=== PATIENT | male | born 1970 | race Caucasian/White ===

== ENCOUNTER → 2021-11-23 08:12 | Outpatient (REF) | payer MEDICAID, OTHER, SELFPAY ==
--- NOTE | 2021-11-23 08:21 | CA_ITS ---
Transthoracic Echocardiogram Patient (Last, First, Middle): Balta Kate, Gender: Male Date of : 1970 Age: 51 Procedure Date: 11/23/2021 Procedure Type: Transthoracic Echocardiogram Location: OP Height: 185.42 cm Weight: 120.2 kg BSA: 2.43 m2 Heart Rate: bpm BP: 138 / 92 mmHg Smoking Pipe Maker: SANTO Referring MD: Louis Manzano MD Symptoms: I10 HTN Study Quality: Fair Conclusions: - Normal left ventricular size and systolic function. There is mildly increased left ventricular wall thickness. The visually estimated ejection fraction is between 60-65%. Diastolic function is normal for age. - No significant valvular or pericardial pathology. Findings Left Ventricle Normal left ventricular size and systolic function. There is mildly increased left ventricular wall thickness. The visually estimated ejection fraction is between 60-65%. Diastolic function is normal for age. Right Ventricle Normal right ventricular cavity size and systolic function. Atria The left atrium is normal in size. Aortic Valve Normal aortic valve structure and function. There is no evidence of thickening of the aortic valve. There is no aortic valve stenosis. There is no aortic valve regurgitation. Mitral Valve Normal mitral valve structure and function. There is trace mitral valve regurgitation. There is no mitral valve stenosis. Pulmonic Valve The pulmonic valve was not well visualized. Tricuspid Valve Normal tricuspid valve structure and function. There is no tricuspid valve regurgitation. Tricuspid regurgitation envelope is inadequate for calculation of right ventricular systolic pressure. Normal right atrial pressure. Great Vessels All visible segments of the aorta are normal in size. The visualized portions of the pulmonary artery and branches are normal. Venous The inferior vena cava is normal in size and collapses greater than 50% with inspiration. Pericardium/Pleural There is no evidence of pericardial effusion. Prior Study Comparison No prior study available for comparison. Measurements 2D Linear Measurements IVSd: 1.08 0.6-0.9/0.6-1.0 cm LVIDd: 4.43 3.9-5.3/4.2-5.9 cm LVIDd Index: 1.82 2.4-3.2/2.2-3.1 cm/m2 LVIDs: 2.91 2.0-3.6 cm LVPWd: 1.09 0.7-1.1 cm LA Diam: 3.70 2.7-3.8/3.0-4.0 cm LAIDs Index: 1.52 1.5-2.3 cm/m2 LV Mass: 208.58 67-162/88-224 g LV Mass Index: 85.84 43-95/49-115 g/m2 LVOT Diam: 2.20 3.0+(-)1.3 cm 2D Systolic Function EF 4C: 67.60 >55% EF 2C: 63.20 >55% EF BiP: 65.20 >55% Mitral Valve MV Pk E: 0.82 MV PK A: 0.97 MV Decel Time: 178.00 E/A: 0.80 E'Lateral: 11.00 E'Medial: 6.96 E/E' Med: 11.80 E/E' Lat: 7.50 PHT: 52.00 MVA PHT: 4.23 Decel Richardson: 4.60 Aortic Valve AoV Pk Shahid: 1.36 AoV Mn Shahid: 0.97 AoV VTI: 0.34 AoV Pk Grad: 7.00 Aov Mn Grad: 4.00 MERLIEN Cont.VTI: 3.05 LVOT LVOT Pk Shahid: 1.04 LVOT Mn Shahid: 0.71 LVOT VTI: 0.27 LVOT Pk Grad: 4.00 LVOT Mn Grad: 2.00 LVOT Diam: 2.20 LVOT Area: 3.80 Diastolic Function MV Pk E: 0.82 MV Pk A: 0.97 E/A: 0.80 E'Medial: 6.96 E/E' Med: 11.80 E' Laterial: 11.00 E/E' Lat: 7.50 Right Ventricle TAPSE (mm): 23.00 TVS' Shahid: 11.60 Tricuspid Valve TR Pk Shahid: 0.67 TR Pk Grad: 2.00 RA Press: 3.00 Great Vessels Aorta Sinus of Valsalva: 3.36 2.0-3.[address] Ridge: 2.73 1.7-3.4 cm Ao Asc: 3.30 2.1-3.4 cm Ao Arch: 3.20 Updated in Other Vendor System with Status of Final Milan Arroyo MD electronically signed on 11/25/2021 12:16:06 PM with status of Final
[2021-11-23 09:29] LABS: Anion Gap 10 (12-20); Blood Urea Nitrogen 21 mg/dL (9-16); Carbon Dioxide 29 mmol/L (22-29); Chloride 103 mmol/L (96-108); Cholesterol 223 mg/dL; Estimated Glomerular Filt Rate > 60; Glucose Random 109 mg/dL (60-115); HDL Cholesterol 50 mg/dL; LDL Cholesterol Calculated 158 mg/dl; Potassium 4.2 mmol/L (3.3-5.1); Sodium 138 mmol/L (135-145); Triglycerides 75 mg/dL
== END ==
LOC: HO.CARD 08:12
PROVIDERS: PCP Internal Medicine; Visit Provider Internal Medicine
DX: I10 Essential (primary) hypertension (principal)
CPT/HCPCS: 36415; 80048; 80061; 93306

== ENCOUNTER 2024-03-17 08:54 | Outpatient (REF) | payer MEDICAID, OTHER, SELFPAY ==
[2024-03-17 09:27] LABS: MANUAL DIFF FLAG NO
[2024-03-17 09:47] LABS: Basophils Percent Auto 0.6 % (0-2); Eosinophils Absolute Auto 0.2 X10*3/uL (0.0-0.4); Eosinophils Percent Auto 4.3 % (0-4); Hematocrit 49.7 % (42.0-52.0); Hemoglobin 16.2 g/dl (14.0-18.0); Imm Gran Abs Auto 0.02 X10*3/uL (0.00-0.03); Imm Gran Pct Auto 0.4 % (0.0-0.4); Lymphocytes Absolute Auto 1.8 X10*3/uL (1.2-4.9); Lymphocytes Percent Auto 35.6 % (20-40); Mean Corpuscular HGB Conc 32.6 g/dl (31.0-36.0); Mean Corpuscular Hemoglobin 28.1 pg (27.0-33.0); Mean Corpuscular Volume 86.1 fL (80.0-98.0); Mean Platelet Volume 10.4 fL (9.4-12.4); Monocytes Absolute Auto 0.5 X10*3/uL (0.1-1.2); Monocytes Percent Auto 9.7 % (2-11); Neutrophils Absolute Auto 2.5 x10*3/uL (2.0-8.3); Neutrophils Percent Auto 49.4 % (45-73); Platelet Count 246 X10*3/uL (160-400); Red Blood Count 5.77 X10*6/uL (4.60-5.80); Red Cell Distribution Width 14.2 % (11.0-16.0); White Blood Count 5.1 X10*3/uL (4.8-10.8)
[2024-03-17 10:29] LABS: Alanine Aminotransferase 49 U/L (0-40); Albumin Level 4.1 g/dL (3.5-5.0); Alkaline Phosphatase 64 U/L (39-117); Anion Gap 10 (12-20); Aspartate Amino Transferase 28 U/L (5-37); Bilirubin Total 0.4 mg/dL (0.0-1.0); Blood Urea Nitrogen 17 mg/dL (9-16); Calcium 9.4 mg/dL (8.4-10.2); Carbon Dioxide 27 mmol/L (22-29); Chloride 108 mmol/L (96-108); Cholesterol 177 mg/dL (<200); Estimated Glomerular Filt Rate > 60; Glucose Random 98 mg/dL (60-115); HDL Cholesterol 53 mg/dL (>40); LDL Cholesterol Calculated 109 mg/dL (<100); Potassium 4.2 mmol/L (3.3-5.1); Sodium 141 mmol/L (135-145); Total Protein 7.2 g/dL (6.5-8.0); Triglycerides 78 mg/dL (<150)
[2024-03-17 10:39] LABS: HIV AB/AG Nonreactive (Nonreactive); HIV Num 1 0.07 S/CO (0.00-0.99); ~HepC Num1 0.18 S/CO (0.00-0.79); ~Hepatitis C Antibody Nonreactive (Nonreactive)
[2024-03-17 10:44] LABS: TSH reflex Free T4 1.76 uIU/mL (0.32-4.0)
[2024-03-18 15:49] LABS: Homocysteine 7.6 umol/L (<11.4)
== END 2024-03-17 08:55 | disposition home or self-care (01) ==
LOC: HO.CHCLDS 08:54
PROVIDERS: Visit Provider Internal Medicine
DX: Z00.00 Encounter for general adult medical examination without abnormal findings (principal); I10 Essential (primary) hypertension; Z12.11 Encounter for screening for malignant neoplasm of colon; E66.01 Morbid (severe) obesity due to excess calories; Z68.38 Body mass index [BMI] 38.0-38.9, adult
CPT/HCPCS: 36415; 80053; 80061; 83090; 84443; 85025; 86803; 87389

== ENCOUNTER 2024-04-22 08:29 | Outpatient (REF) | payer MEDICAID, OTHER, SELFPAY ==
--- NOTE | ~2024-04-22 | US_ITS ---
EXAMINATION: US ABDOMEN COMPLETE CLINICAL INFORMATION: Transaminitis. COMPARISON: Ultrasound abdomen 10/06/2014. Ultrasound kidneys and bladder 05/24/2014. TECHNIQUE: Real-time imaging of the abdominal viscera. FINDINGS: PANCREAS: The visualized pancreas appears unremarkable but the pancreatic tail is obscured by bowel gas. ABDOMINAL AORTA: The proximal, mid, and distal segments are normal in caliber. INFERIOR VENA CAVA: Visualized portions are normal. LIVER: The liver is normal in size. The liver contour is normal. There is diffuse increased liver parenchymal echogenicity, consistent with hepatic steatosis. A 0.8 cm cyst is present in the right lobe of the liver. No solid hepatic masses. There is no intrahepatic biliary duct dilatation seen. GALLBLADDER: Normal. The gallbladder is physiologically distended without evidence of stones, sludge, polyps, wall thickening or pericholecystic fluid. COMMON BILE DUCT: Normal in caliber measuring 0.5 cm in diameter. RIGHT KIDNEY: Normal. No hydronephrosis. No renal calculi or focal parenchymal lesions. The kidney measures 13.4 cm in maximum dimension. LEFT KIDNEY: No hydronephrosis or renal calculi. The kidney measures 14.0 cm in maximum dimension. A benign parapelvic mid renal 4.5 cm Bosniak class I renal cyst is noted which requires no additional imaging or follow up. No solid renal masses are seen. SPLEEN: Normal. The spleen measures 12.3 cm in maximum dimension. FREE FLUID: None. US/US abdomen complete IMPRESSION: Hepatic steatosis. Electronically signed by: Kristian Dorman MD 04/28/2024 02:10 PM EDT
== END 2024-04-22 08:30 | disposition home or self-care (01) ==
LOC: HO.US 08:29
PROVIDERS: PCP Internal Medicine; Visit Provider Internal Medicine
DX: R74.01 Elevation of levels of liver transaminase levels (principal)
CPT/HCPCS: 76700

== ENCOUNTER 2024-07-05 09:37 | Outpatient (REF) | payer MEDICAID, OTHER, SELFPAY ==
[2024-07-05 15:02] LABS: Prostate Specific Antigen 0.52 ng/mL (<0.05-4.0)
== END 2024-07-05 09:38 | disposition home or self-care (01) ==
LOC: HO.CHCLDS 09:37
PROVIDERS: Visit Provider Internal Medicine
DX: R30.0 Dysuria (principal)
CPT/HCPCS: 36415; 84153

== ENCOUNTER 2025-01-26 12:44 | Outpatient (REF) | payer MEDICAID, OTHER, SELFPAY ==
[2025-01-26 14:34] LABS: Prothrombin Time 11.6 SEC (10.9-12.4)
--- OUTSIDE RECORDS SUMMARY | 2025-01-26 14:34 | XMS_ITS | Clinical Summary ---
Author Organization [facility] Address [address] [place] [address] Care Team Providers Care Clerical Proofreader Name Role Phone Jose Juan Echonora Kim Primary Care Provider [phone] Allergies No known active allergies Medications atorvastatin (LIPITOR) 20 mg tablet Take 20 mg by mouth daily. 5 02/10/2018 Active hydroCHLOROthiaz venancio (HYDRODIURIL) 25 mg tablet Take 25 mg by mouth daily. 5 01/11/2018 Active lisinopril (PRINIVIL,ZESTRI L) 10 mg tablet Take 10 mg by mouth daily. 11 02/04/2018 Active Encounters Date Type Department Care Team Description 01/13/2025 Results Follow-Up [facility] [address] [place] [id number] Fur Blowing Machine Attendant: Deborah Castle MS 01/13/2025 Results Follow-Up [facility] [address] [place] [address] Fur Blowing Machine Attendant: Deborah Castle MS 12/20/2024 10:00 AM EDT Telehealth [facility] 5th Floor [address] [place] [address] Deborah Meadows, [place] Family history of prostate cancer 12/20/2024 Telephone [facility] [address] [place] [id number] Fur Blowing Machine Attendant: Brianne Merlos Telephone Intake, Staff Fax notes to PCP from Last 3 Months Social History Tobacco Use Types Packs/Day Years Used Date Smoking Tobacco: Never Assessed Sex and Gender Information Value Date Recorded Sex Assigned at Male 07/16/2024 11:31 AM EST Legal Sex Male 1:11 AM EDT Gender Identity Not on file Sexual Orientation Not on file Last Filed Vital Signs Vital Sign Reading Time Taken Comments Blood Pressure - - Pulse - - Temperature - - Respiratory Rate - - Oxygen Saturation - - Inhaled Oxygen Concentration - - Weight 130.2 kg (287 lb) 03/10/2018 10:36 AM EDT Height 190.5 cm (6' 3 ) 03/10/2018 10:36 AM EDT Body Mass Index 35.87 03/10/2018 10:36 AM EDT Plan of Treatment Health Maintenance Due Date Last Done Comments Colonoscopy 1970 FOBT / Fit Test 1970 Sigmoidoscopy 1970 Pneumococcal Vaccine: 50+ Ye ars (1 of 1 - PCV) 2020 Zoster Vaccines (1 of 2) 2020 COVID-19 Vaccine (1 - 2023- season) 2024 Alcohol/Substance Use Screening 08/11/2024 Depression Screening and Follow-Up 08/11/2024 Social Drivers of Health Elodia ual Screening 08/11/2024 Influenza Vaccine (Season Ended) 2025 DTaP,Tdap,and Td Vaccines (2 - Td or Tdap) 08/24/2025 08/24/2015 Cologuard 04/02/2027 04/02/2024, 04/02/2024 Colon Cancer Screening 04/02/2027 RSV Vaccine (60+ years old a nd patients) (1 - 1-dose 75+ series) 2045 HIV Screening Completed 03/17/2024, 03/17/2024 Hepatitis C Screening Completed 03/17/2024 Hepatitis B Vaccines Completed 11/19/2024, 07/05/2024, 03/11/2024 Procedures * Due to [place] state law, this organization might not be sharing negative HIV tests. Procedure Name Priority Date/Time Associated Diagnosis Comments GENETIC TEST, OUTSIDE LAB Routine 01/03/2025 1:25 PM EDT PAXGENE TUBE Routine 12/20/2024 11:35 AM EDT Family history of prostate cancer AMBRY CANCERNEXT + RNA -[id number] Routine 12/20/2024 11:35 AM EDT Family history of prostate cancer AMBRY CANCERNEXT + RNA -[id number] (PANEL EAP) Routine 12/20/2024 11:35 AM EDT Family history of prostate cancer from Last 3 Months Results * Due to [place] state law, this organization might not be sharing negative HIV tests. * Genetic Test, Outside Lab (01/03/2025 1:25 PM EDT) Brie Hayden MD LAB BLOOD ORDERABLES Final Res ult * [facility] CancerNext + RNA (12/20/2024 11:35 AM EDT) Scan Result See scanned report 01/05/2025 2:50 PM EDT [employer] Blood Structure of peripheral vein / Unknown Venipuncture / Unknown 12/20/2024 11:35 AM EDT 12/20/2024 11:48 AM EDT Brie Hayden MD LAB GENETIC TESTING Final Resu lt [employer] [address] [place] [address] * PAXgene Tube (12/20/2024 11:35 AM EDT) Blood Structure of peripheral vein / Unknown Venipuncture / Unknown 12/20/2024 11:35 AM EDT 12/20/2024 11:48 AM EDT us Brie Hayden MD LAB BLOOD ORDERABLES Final Res ult [facility] [address] [place] [address], from Last 3 Months Insurance [place] HSNO/FREE CARE Care Teams Clerical Proofreader Relationship Specialty Start Date End Date Louis Manzano [address] [place] [phone] PCP - General Internal Medicine 02/20/18
[2025-01-26 14:56] LABS: Alanine Aminotransferase 40 U/L (0-40); Alkaline Phosphatase 67 U/L (39-117); Aspartate Amino Transferase 25 U/L (5-37); Bilirubin Direct < 0.2 mg/dL (0.0-0.5); Bilirubin Total 0.2 mg/dL (0.0-1.0); Iron 58 mcg/dL (45-160); Percent Iron Saturation 23 % (15-50); Total Iron Binding Capacity 248 mcg/dL (228-428); Unsaturated Iron Binding 190 ug/dL
[2025-01-26 15:00] LABS: Ferritin 150 ng/mL (20-250)
[2025-01-27 07:24] LABS: IgA 264 mg/dL (47-310); IgG 1500 mg/dL (600-1640); IgM 74 mg/dL (50-300)
[2025-01-27 08:51] LABS: HBS Num1 96.61 mIU/mL (0-7.99); ~Hepatitis B Surface Antibody REACTIVE (Nonreactive)
== END 2025-01-26 12:45 | disposition home or self-care (01) ==
LOC: HO.CHCLDS 12:44
PROVIDERS: Visit Provider Internal Medicine
DX: R74.01 Elevation of levels of liver transaminase levels (principal)
CPT/HCPCS: 36415; 80076; 82728; 82784; 83540; 85610; 86706

== ENCOUNTER 2025-03-18 07:53 | Outpatient (REF) | payer MEDICAID, OTHER, SELFPAY ==
--- NOTE | ~2025-03-18 | US_ITS ---
EXAMINATION: US ABDOMEN COMPLETE WITH LIVER ELASTOGRAPHY HISTORY: transaminitis TECHNIQUE: Real-time grayscale ultrasound imaging of the abdomen was performed and images were reviewed. COMPARISON: Comparison is made with the prior examination dated 04/24/2024. FINDINGS: Liver: The right lobe of the liver measures 17.2 cm in size. The left lobe of the liver measures 9.6 cm in size. The liver demonstrates normal homogeneous echotexture. There is a 1.4 x 1.2 x 1.4 cm echogenic lesion in the right lobe which may represent a hemangioma. No intrahepatic biliary ductal dilatation is identified. There is normal hepatopedal flow in the portal vein. Ultrasound elastography of the liver was performed with 10 separate measurements of the liver parenchyma with the patient in the supine position. Measurements were obtained approximately 2 cm below Liz's capsule and perpendicular to the capsule. The median shear wave velocity is 1.24 m/s. The interquartile range/median (IQR/median) is 0.22. Gallbladder and biliary tree: The gallbladder is unremarkable, without evidence of calculi, wall thickening, or pericholecystic fluid. There is no sonographic Coronado sign. The common bile duct is normal in caliber measuring 4 mm. Kidneys: The right kidney measures 12.9 cm in length. The left kidney measures 12.8 cm in length. There is mild left hydronephrosis. No renal masses or calculi are identified. Pancreas: The pancreas is obscured by bowel gas. Spleen: The spleen is top normal in size and contour, measuring 12.6 cm in length. Abdominal aorta and inferior vena cava: The visualized portions of the abdominal aorta and inferior vena cava are normal in caliber. There is no free fluid in the abdomen. US/US abdomen comp w elastography IMPRESSION: 1. 1.4 cm echogenic lesion in the right lobe of the liver which may represent a hemangioma. This could be confirmed with MRI. 2. Mild left hydronephrosis. The median shear wave velocity in the liver is 1.24 m/s, corresponding to a median liver stiffness of 4.6 kPa. The IQR/median value is 0.22. This is indicative of a quality data set. Findings are indicative of a normal elastography value with a low likelihood of severe fibrosis or cirrhosis. REFERENCE: Society of Radiologists in Ultrasound Liver Stiffness Thresholds (2020): LIVER STIFFNESS THRESHOLDS: *Shear wave velocity less than 1.3 m/s (Liver Stiffness equal or less than 5 kPa): High probability of being normal. *Shear wave velocity less than 1.7 m/s (Liver Stiffness less than 9 kPa): In the absence of other known clinical signs, rules out compensated advanced chronic liver disease. *Shear wave velocity between 1.7-2.1 m/s (Liver Stiffness 9-13 kPa): Suggestive of compensated advanced chronic liver disease but need further test for confirmation. *Shear wave velocity between 2.1-2.4 m/s (Liver Stiffness 13-17 kPa): Rules in compensated advanced chronic liver disease. *Shear wave velocity greater than 2.4 m/s (Liver Stiffness over 17 kPa): Suggestive of clinically significant portal hypertension. QUALITY OF DATA SET: *IQR/Median value equal or less than 0.30 implies a quality data set. *IQR/Median value over 0.30 implies a poor quality data set. SIGNIFICANT CHANGE FROM PRIOR EXAM: Significant change if liver stiffness measurement is 10% or greater from prior exam. OTHER CONSIDERATIONS: The stage of liver fibrosis may be overestimated in the setting of acute hepatitis, liver inflammation, elevated liver function tests, hepatic vascular congestion, obstructive cholestasis, non-fasting state, and infiltrative diseases such as amyloidosis and lymphoma. In some patients with NAFLD, the liver stiffness thresholds for compensated advanced chronic liver disease may be lower. In causes other than viral hepatitis and NAFLD, liver stiffness thresholds are not well established. Electronically signed by: Mt Springer MD 03/18/2025 08:38 AM EDT
--- OUTSIDE RECORDS SUMMARY | 2025-03-18 07:55 | XMS_ITS | Encounter Summary ---
Author Organization [employer] Address [address] [place] [address] [address] [place] [address] Care Team Providers Care Chief Privacy Officer Name Role Phone Louis Manzano MD Primary Care Provider [phone] Reason for Referral * Imaging (Routine) - Closed Specialty Diagnoses / Procedures Referred By Contmarleni bocanegra Referred To Contact Radiology Diagnoses Transaminitis Procedures US Abdomen Complete Louis Manzano MD [address] [place] [address] Phone: tel: fax: [address] Phone: tel: fax: Referral ID Status Reason Start Date Expiration Date Visits Re quested Visits Authorized [id number] Closed 04/07/2024 04/07/2025 1 1 Encounter Details Date Type Department Care Team (Late st Contact Info) Description 04/07/2024 Orders Only [facility] [address] [place] [address] Louis Manzano MD [address] [place], [place] [phone] Transaminitis (Primary Dx) Social History Tobacco Use Types Packs/Day Years Used Date Smoking Tobacco: Former Cigarettes Smokeless Tobacco: Never Comments:Quit 20 years ago. Depression Answer Date Recorded Patient Health Questionnaire-9 Score 1 03/11/2024 Patient Health Questionnaire-9 Score 1 03/11/2024 Last PHQ-9: Questionnaire Data Not on file 0 03/11/2024 Depression Answer Date Recorded Patient Health Questionnaire-2 Score 0 03/11/2024 Sex and Gender Information Value Date Recorded Sex Assigned at Male 06/10/2022 10:21 AM EDT Legal Sex Male 10:21 AM EDT Gender Identity Male 06/10/2022 10:21 AM EDT Sexual Orientation Straight 06/10/2022 10 :21 AM EDT documented as of this encounter Plan of Treatment Not on file documented as of this encounter Procedures Procedure Name Priority Date/Time Associated Diagnosis Comments US ABDOMEN COMPLETE Routine 04/22/2024 8 :31 AM EDT Transaminitis documented in this encounter Results * US Abdomen Complete (04/22/2024 8:31 AM EDT) Anatomical Region Laterality Modality Abdomen Ultrasound 04/22/2024 8:31 AM EDT Narrative 04/28/2024 2:13 PM EDT [place] [address] Ultrasound Report Signed Patient: Balta Kate MR#: [id number] : 1970 Acct:[id number] Age/Sex: 53 / M ADM Date: 04/22/24 Loc: HO.US Attending Dr: Louis Manzano MD Ordering Physician: Louis Manzano MD Date of Service: 04/22/24 Procedure(s): US abdomen complete Accession Number(s): [id number] cc: Louis Manzano MD EXAMINATION: US ABDOMEN COMPLETE CLINICAL INFORMATION: Transaminitis. COMPARISON: Ultrasound abdomen 10/06/2014. Ultrasound kidneys and bladder 05/24/2014. TECHNIQUE: Real-time imaging of the abdominal viscera. FINDINGS: PANCREAS: The visualized pancreas appears unremarkable but the pancreatic tail is obscured by bowel gas. ABDOMINAL AORTA: The proximal, mid, and distal segments are normal in caliber. INFERIOR VENA CAVA: Visualized portions are normal. LIVER: The liver is normal in size. The liver contour is normal. There is diffuse increased liver parenchymal echogenicity, consistent with hepatic steatosis. A 0.8 cm cyst is present in the right lobe of the liver. No solid hepatic masses. There is no intrahepatic biliary duct dilatation seen. GALLBLADDER: Normal. The gallbladder is physiologically distended without evidence of stones, sludge, polyps, wall thickening or pericholecystic fluid. COMMON BILE DUCT: Normal in caliber measuring 0.5 cm in diameter. RIGHT KIDNEY: Normal. No hydronephrosis. No renal calculi or focal parenchymal lesions. The kidney measures 13.4 cm in maximum dimension. LEFT KIDNEY: No hydronephrosis or renal calculi. The kidney measures 14.0 cm in maximum dimension. A benign parapelvic mid renal 4.5 cm Bosniak class I renal cyst is noted which requires no additional imaging or follow up. No solid renal masses are seen. SPLEEN: Normal. The spleen measures 12.3 cm in maximum dimension. FREE FLUID: None. US/US abdomen complete IMPRESSION: Hepatic steatosis. Electronically signed by: Kristian Dorman MD 04/28/2024 02:10 PM EDT Dictated By: Kristian Dormna MD Signed By: <Electronically signed by Kristian Dorman MD in OV> 04/28/24 1410 DD/ 0831 TD/TT: 04/22/24 0900 Bottle Machine Operator: Procedure Note Donotuseinterpreter, Image - 04/28/2024 [place] [address] Ultrasound Report Signed Patient: Keo KateR#: [id number] : 1970Acct:[id number] Age/Sex: 53 / MADM Date: 04/22/24 Loc: HO.US Attending Dr: Louis Manzano MD Ordering Physician: Louis Manzano MD Date of Service: 04/22/24 Procedure(s): US abdomen complete Accession Number(s): [id number] cc: Louis Manzano MD EXAMINATION: US ABDOMEN COMPLETE CLINICAL INFORMATION: Transaminitis. COMPARISON: Ultrasound abdomen 10/06/2014. Ultrasound kidneys and bladder 05/24/2014. TECHNIQUE: Real-time imaging of the abdominal viscera. FINDINGS: PANCREAS: The visualized pancreas appears unremarkable but the pancreatic tail is obscured by bowel gas. ABDOMINAL AORTA: The proximal, mid, and distal segments are normal in caliber. INFERIOR VENA CAVA: Visualized portions are normal. LIVER: The liver is normal in size. The liver contour is normal. There is diffuse increased liver parenchymal echogenicity, consistent with hepatic steatosis. A 0.8 cm cyst is present in the right lobe of the liver. No solid hepatic masses. There is no intrahepatic biliary duct dilatation seen. GALLBLADDER: Normal. The gallbladder is physiologically distended without evidence of stones, sludge, polyps, wall thickening or pericholecystic fluid. COMMON BILE DUCT: Normal in caliber measuring 0.5 cm in diameter. RIGHT KIDNEY: Normal. No hydronephrosis. No renal calculi or focal parenchymal lesions. The kidney measures 13.4 cm in maximum dimension. LEFT KIDNEY: No hydronephrosis or renal calculi. The kidney measures 14.0 cm in maximum dimension. A benign parapelvic mid renal 4.5 cm Bosniak class I renal cyst is noted which requires no additional imaging or follow up. No solid renal masses are seen. SPLEEN: Normal. The spleen measures 12.3 cm in maximum dimension. FREE FLUID: None. US/US abdomen complete IMPRESSION: Hepatic steatosis. Electronically signed by: Kristian Dorman MD 04/28/2024 02:10 PM EDT RP Dictated By: Kristian Dorman MD Signed By: <Electronically signed by Kristian Dorman MD in OV> 04/28/24 1410 DD/ 0831 TD/TT: 04/22/24 0900 Bottle Machine Operator: SS us Louis Manzano MD IMG US PROCEDURES Final Res ult documented in this encounter Visit Diagnoses Diagnosis Transaminitis- Primary Nonspecific elevation of levels of transaminase or lactic acid dehydrogenase (LDH) documented in this encounter Additional Health Concerns Assessment Noted Time PHQ-9 Depression Total Score: 1 03/11/20 24 2:20 PM EDT documented as of this encounter Care Teams Chief Privacy Officer Relationship Specialty Start Date End Date Louis Manzano MD [address] [place] [address] PCP - General Internal Medicine 08/11/18 documented as of this encounter
--- OUTSIDE RECORDS SUMMARY | 2025-03-18 07:55 | XMS_ITS | Clinical Summary ---
Author Organization [facility] Address [address] [place] [address] Care Team Providers Care Secondary Special Education Teacher Name Role Phone Jose Juan Echonora Kim Primary Care Provider [phone] Allergies No known active allergies Medications atorvastatin (LIPITOR) 20 mg tablet Take 20 mg by mouth daily. 5 02/10/2018 Active hydroCHLOROthiaz venancio (HYDRODIURIL) 25 mg tablet Take 25 mg by mouth daily. 5 01/11/2018 Active lisinopril (PRINIVIL,ZESTRI L) 10 mg tablet Take 10 mg by mouth daily. 11 02/04/2018 Active Encounters Date Type Department Care Team Description 01/13/2025 Results Follow-Up [facility] [address] [place] [address] Mental Health Unit Lead Psychologist: Deborah Castle MS 01/13/2025 Results Follow-Up [facility] [address] [place] [address] Mental Health Unit Lead Psychologist: Deborah Castle MS 12/20/2024 10:00 AM EDT Telehealth [facility] [address]th [place] [address] [place] [address] Deborah Meadows, [place] Family history of prostate cancer 12/20/2024 Telephone [facility] [address] [place] [id number] Mental Health Unit Lead Psychologist: Brianne Merlos Telephone Intake, Staff Fax notes [...] Health Elodia ual Screening 08/11/2024 Influenza Vaccine (#1) 2025 DTaP,Tdap,and Td Vaccines (2 - Td or Tdap) 08/24/2025 08/24/2015 Cologuard 04/02/2027 04/02/2024, 04/02/2024 Colon Cancer Screening 04/02/2027 RSV Vaccine (60+ years old a nd patients) (1 - 1-dose 75+ series) 2045 HIV Screening Completed 03/17/2024, 03/17/2024 Hepatitis C Screening Completed 03/17/2024 Hepatitis B Vaccines Completed 11/19/2024, 07/05/2024, 03/11/2024 Procedures * Due to [place] state law, this organization might not be sharing negative HIV tests. Procedure Name Priority Date/Time Associated Diagnosis Comments GENETIC TEST, OUTSIDE LAB Routine 01/03/2025 1:25 PM EDT PAXGENE TUBE Routine 12/20/2024 11:35 AM EDT Family history of prostate cancer AMBRY CANCERNEXT + RNA -[id number] Routine 12/20/2024 11:35 AM EDT Family history of prostate cancer AMBRY CANCERNEXT + RNA -[id number] (PANEL EAP) Routine 12/20/2024 11:35 AM EDT Family history of prostate cancer from Last 3 Months Results * Due to [place] state law, this organization might not be sharing negative HIV tests. * Genetic Test, Outside Lab (01/03/2025 1:25 PM EDT) Brie Hayden MD LAB BLOOD ORDERABLES Final Res ult * [facility] CancerNext + RNA (12/20/2024 11:35 AM EDT) Scan Result See scanned report 01/05/2025 2:50 PM EDT [employer] Blood Structure of peripheral vein / Unknown Venipuncture / Unknown 12/20/2024 11:35 AM EDT 12/20/2024 11:48 AM EDT Brie Hayden MD LAB GENETIC TESTING Final Resu lt [employer] [address] [place] [address] * PAXgene Tube (12/20/2024 11:35 AM EDT) Blood Structure of peripheral vein / Unknown Venipuncture / Unknown 12/20/2024 11:35 AM EDT 12/20/2024 11:48 AM EDT us Brie Hayden MD LAB BLOOD ORDERABLES Final Res ult [facility] [address] [place] [address], from Last 3 Months Insurance [employer] HSNO/FREE CARE Care Teams Secondary Special Education Teacher Relationship Specialty Start Date End Date Louis Manzano [address] [place] [address] PCP - General Internal Medicine 02/20/18
== END 2025-03-18 07:54 | disposition home or self-care (01) ==
LOC: HO.US 07:53
PROVIDERS: PCP Internal Medicine; Visit Provider Internal Medicine
DX: R74.01 Elevation of levels of liver transaminase levels (principal)
CPT/HCPCS: 76700; 76981

== ENCOUNTER → 2025-03-18 07:53 | Outpatient (BNV) | payer SELFPAY | PROVIDERS: PCP Internal Medicine; Visit Provider Radiology Diagnostic Radiology | DX: N13.30 Unspecified hydronephrosis (principal) | CPT/HCPCS: 76700 ==